=== PATIENT | male | born 1935 | race Caucasian/White ===

== ENCOUNTER → 2018-01-08 | Day surgery (SDC) | payer OTHER ==
[2018-01-06 11:53] LABS: BASOPHILS % 0.7 % (0.0-1.0); EOSINOPHILS # (AUTO) 0.1 (0.0-0.4); EOSINOPHILS % 1.5 % (0.0-6.0); HEMATOCRIT 40.6 % (38.2-49.6); HEMOGLOBIN 13.7 g/dL (14.0-18.0); LYMPHOCYTES # (AUTO) 1.6 (1.0-3.2); LYMPHOCYTES % 25.7 % (18.0-39.1); MEAN CORPUSCULAR HEMOGLOBIN 32.2 pg (28-32); MEAN CORPUSCULAR HGB CONC 33.7 g/dL (31-35); MEAN CORPUSCULAR VOLUME 95.3 fL (81-99); MONOCYTES # (AUTO) 0.7 (0.2-0.8); MONOCYTES % 11.3 % (4.4-11.3); NEUTROPHILS # (AUTO) 3.7 (2.1-6.9); NEUTROPHILS % 60.6 % (38.7-80.0); PLATELET COUNT 137 x10e3/uL (140-360); RED BLOOD COUNT 4.26 x10e6/uL (4.3-5.7); RED CELL DISTRIBUTION WIDTH 13.1 % (11.7-14.4)
--- NOTE | 2018-01-06 12:36 | Diagnostic Imaging Report ---
PROCEDURE: Frontal and lateral views of the chest. COMPARISON: Chest radiograph 02/11/16. INDICATIONS: PRE-OP FINDINGS: Lines/tubes: None. Lungs: The lungs are well inflated. There is no evidence of pneumonia or pulmonary edema. Mild patchy left basilar opacity, likely atelectasis. Pleura: There is no pleural effusion or pneumothorax. Heart and mediastinum: The cardiomediastinal silhouette is unchanged. Tortuous thoracic aorta. Bones: No acute bony abnormality. IMPRESSION: No acute cardiopulmonary disease. Dictated by: SALVADOR RIVERA M.D. on 01/06/2018 at 12:42 Electronically approved by: SALVADOR RIVERA M.D. on 01/06/2018 at 12:42
[~2018-01-08] MED LIST: ACETAMINOPHEN 1000 MG/100 ML IV ONE; ALOE VERA25 MG PO; ASPIR 8181 MG PO; CEFTRIAXONE SOD 1 GM VIAL ONE; DEXAMETHASONE SOD PHOS INJ 4 MG/ML VIAL ONE; EXFORGE; FISH OIL 1,0001 EAC2 PO; FLOMAX0.4 MG PO; GARLIC1 EAC1 PO; GENTAMICIN 80MG/NS 100 ML 100 ML IV ONE; IOPAMIDOL 300MG/ML 50ML INFUS..BTL IV ONE; LEVOTHYROXINE; LIDOCAINE HCL 2% LOCAL INJ 5 ML SDV VIAL INJ ONE; PROPOFOL IV EMULSION 10 MG/ML 20 ML VIAL ONE; SEVOFLURANE INHAL SOLN 250 ML PEN BTL ONE; VITAMIN D400 UNIT PO
--- NOTE | 2018-03-02 14:58 | Operative Report ---
DATE OF PROCEDURE: January 08, 2018 PREOPERATIVE DIAGNOSES 1. Obstructive BPH. 2. Gross hematuria. POSTOPERATIVE DIAGNOSES 1. Obstructive BPH. 2. Gross hematuria. 3. Urethral stricture disease. PROCEDURES PERFORMED 1. Cystourethroscopy with calibration and dilation of urethral stricture (separate procedure performed for the diagnosis of the stricture). 2. Cystourethroscopy with bilateral ureteral catheterization and retrograde ureteropyelography (separate procedure performed to evaluate the hematuria). 3. Interpretation of retrograde ureteropyelography. 4. Supervision of fluoroscopy. No radiologist present. 5. Cystourethroscopy with transurethral resection of the prostate utilizing the PlasmaButton electrode. ANESTHESIA: General. COMPLICATIONS: None. CLINICAL SUMMARY: Laci Ratliff is an 82-year-old man who underwent previous photoselective vaporization of the prostate in 2007. Following this, he underwent a transurethral resection of the prostate in 2008. The patient has recurrent symptomatology and was also noted to have gross hematuria. He is brought to the operating room to evaluate and manage. He is aware of the risks of bleeding, infection, injury to adjacent structures, need for additional procedures and elected to proceed. OPERATIVE PROCEDURE IN DETAIL: Informed consent was verified. Laci Ratliff was properly identified, taken to the operating room and placed on the cystoscopy table in supine position. Anesthesia was uneventfully begun. The patient was then carefully and gently repositioned in the dorsal lithotomy position with all pressure points well padded. His genitalia were prepared and draped in the usual sterile fashion. The 22.5-Peruvian cystourethroscope sheath with visual obturator in place was atraumatically inserted in the patient's urethra. It was guided down the unremarkable distal urethra to the bulbar region where there was a significant stricture. This stricture was short, but it was definitely tight. It calibrated approximately 12 Peruvian in size. We dilated across this stricture utilizing the visual obturator. Thus, we dilated to 22.5-Peruvian in size. We progressively later dilated the stricture to 30 Peruvian in size with Laurel sounds. We went to the patient's prostate bed, which was significant for regrowth of prostatic tissue that was obstructing. This was most prominent at the level of the apex, but it was present throughout. Panendoscopy of the urinary bladder revealed trabeculations but no tumors, no stones and no diverticula. Normally positioned and configured ureteral orifices were identified. An 8-Peruvian catheter was used to cannulate each ureter, and retrograde ureteral pyelograms were performed. Interpretation of retrograde ureteropyelography: Contrast was instilled in retrograde fashion bilaterally. There no tumors, no stones and no diverticula. Unobstructed drainage was observed bilaterally fluoroscopically. There was significant tortuosity of the left ureter in comparison to the right ureter. There was the InterStim lead that appeared to be in adequate position. Following dilation with sounds to 30 Peruvian, we atraumatically introduced the resectoscope sheath. We then utilized the PlasmaButton electrode to vaporize the prostate from the bladder neck to but never past the verumontanum and down to the surgical capsule. Pinpoint electrocautery was utilized to achieve hemostasis. This resulted in a wide open prostatic bed. A continuous irrigation catheter was then placed. It was placed in continuous irrigation with completely clear efflux. The patient was uneventfully reversed from anesthesia and taken to the recovery room in stable condition. There were no complications to the procedure. The patient tolerated the procedure well. Estimated blood loss was minimal. Explicit postoperative instructions were given. We will follow the patient up in the office at which point in time we will perform uroflowmetry and bladder ultrasonography. Job#: [id number]
--- OUTSIDE RECORDS SUMMARY | 2018-03-04 00:47 | XMS REPORT ---
Author Author [facility] Address Unknown Phone Unavailable Care Team Providers Care Pens And Pencils Dipper Name Role Phone MIHIR HESS Unavailable Unavailable Problems This patient has no known problems. Allergies, Adverse Reactions, Alerts This patient has no known allergies or adverse reactions. Medications This patient has no known medications. Results Test Description Test Time Test Comments Text Results Atomic Results Result Comments CHEST 2 VIEWS 2018-01-06 12:42:00 [place] [address] Patient Name: DOROTEO ALBA MR #: [id number] : 1935 Age/Sex: 82/M Req #: [id number] Adm Physician: Ordered by: MIHIR HESS MD Report #: [id number] Location: OR Room/Bed: Procedure: [id number] DX/CHEST 2 VIEWS Exam Date: Exam Time: REPORT STATUS: Signed PROCEDURE: Frontal and lateral views of the chest. COMPARISON: Chest radiograph 02/11/16. INDICATIONS: PRE-OP FINDINGS: Lines/tubes: None. Lungs: The lungs are well inflated. There is no evidence of pneumonia or pulmonary edema. Mild patchy left basilar opacity, likely atelectasis. Pleura: There is no pleural effusion or pneumothorax. Heart and mediastinum: The cardiomediastinal silhouette is unchanged. Tortuous thoracic aorta. Bones: No acute bony abnormality. IMPRESSION: No acute cardiopulmonary disease. Dictated by: SALVADOR RIVERA M.D. on 01/06/2018 at 12 :42 Electronically approved by: SALVADOR RIVERA M.D. on 01/06/2018 at 12:42 Dictated By: SALVADOR RIVERA MD [id number] Transcribed By: RENATE on 01/06/18 1242 COPY TO: MIHIR HESS MD
--- OUTSIDE RECORDS SUMMARY | 2018-03-04 00:47 | XMS REPORT | Clinical Summary ---
Author Author [facility] Address Unknown Phone Unavailable Care Team Providers Care Commercial Appraiser Name Role Phone Shauna Casey MD PCP Allergies No Known Allergies Current Medications Prescription Sig. Disp. Refills Start End Date Status Date amlodipine-valsartan 11/27/19 Active (EXFORGE) 5-320 mg per 17 tablet levothyroxine (SYNTHROID, 10/16/19 Active LEVOXYL) 125 mcg tablet 17 aspirin (ECOTRIN) 81 MG Take 81 mg by mouth Active enteric coated tablet daily. nystatin (MYCOSTATIN) 500,000 units swish and 2000 g 0 02/24/20 100,000 unit/gram swallow QID x 10 days 17 18 powderIndications: Thrush, oral Active Problems No known active problems Encounters Date Type Specialty Care Team Description 02/25/2017 Office Visit Otolaryngology Pilar Dominguez MD Hyperkeratotic oral lesion (Primary Dx) 02/23/2017 Orders Only Otolaryngology Pilar Dominguez MD Thrush, oral (Primary Dx) 02/06/2017 Lab Lab Pilar Dominguez MD 02/06/2017 Procedure visit Otolaryngology Pilar Dominguez MD Oral ulcer (Primary Dx) 02/04/2017 Office Visit Otolaryngology Pilar Dominguez MD Oral leukoplakia (Primary Dx) after 01/07/2017 Family History Medical History Relation Name Comments No Known Problems Father Breast cancer Mother Migraines Mother Relation Name Status Comments Father Mother Social History Tobacco Use Types Packs/Day Years Used Date Former Smoker Alcohol Use Drinks/Week oz/Week Comments Yes 5 Glasses of 3.0 wine Sex Assigned at Date Recorded Not on file Last Filed Vital Signs Vital Sign Reading Time Taken Blood Pressure 155/85 02/25/2017 8:54 AM CDT Pulse 51 02/25/2017 8:54 AM CDT Temperature - - Respiratory Rate - - Oxygen Saturation - - Inhaled Oxygen - - Concentration Weight 93.4 kg (206 lb) 02/25/2017 8:54 AM CDT Height 188 cm (6' 2") 02/25/2017 8:54 AM CDT Body Mass Index 26.45 02/25/2017 8:54 AM CDT Plan of Treatment Health Maintenance Due Date Last Done Comments SHINGRIX VACCINE (#1) 1984 ZOSTER VACCINE 1994 PNEUMOCOCCAL 1999 POLYSACCHARIDE VACCINE AGE 65 AND OVER PNEUMOCOCCAL-13 1999 INFLUENZA VACCINE 12/30/2017 Procedures Procedure Name Priority Date/Time Associated Diagnosis Comments SURGICAL PATHOLOGY Routine 02/06/2017 Results for this REQUEST 9:00 AM CDT procedure are in the results section. after 01/07/2017 Results * Surgical pathology request (02/06/2017 9:00 AM) [facility] DEPARTMENT OF PATHOLOGY AND GENOMIC MEDICINE Surgical pathology report See link below for PDF Lab [facility] DEPARTMENT OF Report PATHOLOGY AND GENOMIC MEDICINE Performing Organization Address City/State/Zipcode Phone Number [facility] DEPARTMENT [address] [place] [address] PATHOLOGY AND GENOMIC MEDICINE after 01/07/2017 Insurance Payer Benefit Subscriber ID Type Phone Address Plan / Group TEXAN[employer] TEXAN[employer]US xxxxxxxxx [facility]
== END | disposition home or self-care (01) ==
LOC: OR 10:41
PROVIDERS: ATTEND Urology
DX: N40.1 Benign prostatic hyperplasia with lower urinary tract symptoms (principal); N13.8 Other obstructive and reflux uropathy; R39.14 Feeling of incomplete bladder emptying; N35.9 Urethral stricture, unspecified; N32.81 Overactive bladder; N39.41 Urge incontinence; N39.0 Urinary tract infection, site not specified; R35.1 Nocturia; N32.89 Other specified disorders of bladder; I10 Essential (primary) hypertension; R60.9 Edema, unspecified; R00.1 Bradycardia, unspecified; Z01.810 Encounter for preprocedural cardiovascular examination; Z01.812 Encounter for preprocedural laboratory examination; Z01.818 Encounter for other preprocedural examination; Z79.82 Long term (current) use of aspirin; Z87.442 Personal history of urinary calculi; Z87.891 Personal history of nicotine dependence; Z84.1 Family history of disorders of kidney and ureter
CPT/HCPCS: 36415; 52005; 52630; 71046; 74420; 85025; 86850; 86900; 93005; C1758; J0696; J1100; J1580; J2001; Q9967

== ENCOUNTER → 2018-10-06 | Day surgery (SDC) | payer MEDICARE ==
[2018-10-04 10:09] LABS: BASOPHILS # (AUTO) 0.1 (0.0-0.1); BASOPHILS % 0.9 % (0.0-1.0); EOSINOPHILS # (AUTO) 0.1 (0.0-0.4); EOSINOPHILS % 2.1 % (0.0-6.0); HEMATOCRIT 40.7 % (38.2-49.6); HEMOGLOBIN 13.7 g/dL (14.0-18.0); LYMPHOCYTES # (AUTO) 1.6 (1.0-3.2); LYMPHOCYTES % 23.9 % (18.0-39.1); MEAN CORPUSCULAR HEMOGLOBIN 31.3 pg (28-32); MEAN CORPUSCULAR HGB CONC 33.7 g/dL (31-35); MEAN CORPUSCULAR VOLUME 92.9 fL (81-99); MONOCYTES # (AUTO) 0.9 (0.2-0.8); MONOCYTES % 13.3 % (4.4-11.3); NEUTROPHILS % 59.5 % (38.7-80.0); PLATELET COUNT 169 x10e3/uL (140-360); RED BLOOD COUNT 4.38 x10e6/uL (4.3-5.7); RED CELL DISTRIBUTION WIDTH 13.2 % (11.7-14.4)
--- NOTE | 2018-10-04 10:38 | Diagnostic Imaging Report ---
EXAMINATION: PA and lateral views of the chest. COMPARISON: 01/16/2018 CLINICAL HISTORY: Preoperative study for urological procedure DISCUSSION: Lungs are well-inflated. Symmetric nodular opacities project over the lung bases compatible with nipple shadows. No airspace consolidation, pleural effusion, or pneumothorax. Stable cardiomediastinal contour with tortuosity and atherosclerotic calcification of the thoracic aorta. Normal heart size without overt pulmonary edema. No acute osseous abnormality. IMPRESSION: No acute cardiopulmonary abnormalities. Signed by: Dr. Ignacio Krishnan M.D. on 10/04/2018 10:35 AM
[~2018-10-06] MED LIST changes: -ACETAMINOPHEN 1000 MG/100 ML IV ONE; +BUPIVACAINE 0.5%/EPI 30 ML SDV INJ ONE; -CEFTRIAXONE SOD 1 GM VIAL ONE; +CLINDAMYCIN 600MG / 50ML 50 ML IV ONE; -GENTAMICIN 80MG/NS 100 ML 100 ML IV ONE; -IOPAMIDOL 300MG/ML 50ML INFUS..BTL IV ONE; +LIDOCAINE 2%/ EPINEPHRINE 20ML MDV ONE; +MULTIVITAMINS1 EAC7 PO; +ONDANSETRON HCL INJ 2MG/ML 2ML 2 MG/ML VIAL ONE; +PIPER-TAZ 3.375 GM 50 ML ONE; +ROCURONIUM BROMIDE 10 MG/ML 5ML VIAL ONE; +SUCCINYLCHOLINE 200 MG/10 ML SYR ONE
--- OUTSIDE RECORDS SUMMARY | 2018-10-06 08:05 | XMS REPORT | Clinical Summary ---
Author Author [facility] Address Unknown Phone Unavailable Care Team Providers Care Treasury Associate Name Role Phone Shauna Casey MD PCP Allergies No Known Allergies Medications End Date Status Medication Sig Dispensed Refills Start Date Active amlodipine-valsartan 0 (EXFORGE) 5-320 mg per 7 tablet Active levothyroxine (SYNTHROID, 0 LEVOXYL) 125 mcg tablet 7 Active aspirin (ECOTRIN) 81 MG Take 81 mg by 0 enteric coated tablet mouth daily. Active tamsulosin (FLOMAX) 0.4 Take 0.4 mg 0 mg capsule by mouth daily. 02/23/2018 nystatin (MYCOSTATIN) 500,000 units 2000 g 0 100,000 unit/gram swish and 7 powderIndications: swallow QID x Thrush, oral 10 days 06/26/2018 mouthwash compounding 15 mL by 480 mL 1 base 227 (MOUTHWASH-OM) mucous 9 mouthwash membrane route 3 (three) times a day for 10 days. . Active Problems No known active problems Encounters Care Team Description Date Type Specialty Pilar Dominguez MD Oral leukoplakia (Primary Dx); Dry mouth 06/16/2018 Office Visit Otolaryngology after 10/05/2017 Family History Medical History Relation Name Comments No Known Problems Father Breast cancer Mother Migraines Mother Relation Name Status Comments Father Mother Social History Date Tobacco Use Types Packs/Day Years Used Former Smoker Smokeless Tobacco: Never Used Alcohol Use Drinks/Week oz/Week Comments Yes 5 Glasses of 3.0 wine Sex Assigned at Date Recorded Not on file Industry Job Start Date Occupation Not on file Not on file Not on file Travel End Travel History Travel Start No recent travel history available. Last Filed Vital Signs Time Taken Vital Sign Reading 06/16/2018 10:56 AM [employer] Blood Pressure 128/80 06/16/2018 10:56 AM [employer] Pulse 59 - Temperature - - Respiratory Rate - - Oxygen Saturation - - Inhaled Oxygen - Concentration 06/16/2018 10:56 AM [employer] Weight 94.3 kg (208 lb) 06/16/2018 10:56 AM [employer] Height 185.4 cm (6' 1") 06/16/2018 10:56 AM [employer] Body Mass Index 27.44 Plan of Treatment Health Maintenance Due Date Last Done Comments SHINGLES VACCINES (#1) 1984 65+ PNEUMOCOCCAL VACCINE 1999 (1 of 2 - PCV13) PNEUMOCOCCAL 1999 POLYSACCHARIDE VACCINE AGE 65 AND OVER INFLUENZA VACCINE 12/30/2018 Results Not on fileafter 10/05/2017 Insurance Payer Benefit Subscriber ID Type Phone Address Plan / Group [employer] TEX[employer] xxxxxxxxx HMO [facility] Advance Directives Patient has advance care planning documents on file. For more information, eric oswald contact: Madi Coker [address] [facility] [place] [address]
[2018-10-06 13:29] VITALS: BP 141/67
--- NOTE | 2018-10-13 07:17 | Operative Report ---
DATE OF PROCEDURE: 10/06/2018 SURGEON: Billy Telles MD PREOPERATIVE DIAGNOSIS: Refractory urge incontinence. POSTOPERATIVE DIAGNOSIS: Refractory urge incontinence. OPERATION PERFORMED: 1. Incision and implantation of tined quadripolar lead electrodes into the right foramen S3. 2. Explantation of tined quadripolar lead electrodes from the left foramen S3. 3. Replacement of sacral nerve neurostimulator on the left hand side. 4. Fluoroscopic guidance for needle placement. 5. Electronic analysis and complex programming. 6. Supervision of fluoroscopy, no radiologist present. ANESTHESIA: General. COMPLICATIONS: None. CLINICAL SUMMARY: Laci Ratliff is an 83-year-old man, whose InterStim is now malfunctioning. He is brought for the above procedure. He is aware of the risks of bleeding, infection, injury to adjacent structures, need for additional procedures and elected to proceed. OPERATIVE PROCEDURE IN DETAIL: Informed consent was verified. Laci Ratliff was properly identified, taken to the operating room, where anesthesia was uneventfully begun. The patient was then repositioned in the prone position with all pressure points carefully well padded. His back and buttocks were prepared and draped in usual sterile fashion. A needle was introduced into the right foramen S3. Depth of needle was confirmed and adjusted fluoroscopically and we observed for lifting of the perineum or "bellowing" and observation of plantar flexion of the great toe utilizing the test stimulator box. The needle stylet was then removed and a directional guidewire was then placed and confirmed fluoroscopically. The foramen needle was then removed and an incision was made peripheral to the directional guidewire. The dilator and introducer sheath were then placed over the directional guidewire and directed into the foramen until the opaque marker of the dilator was seen midway through the sacrum. The dilator obturator was then unlocked and removed. The lead was then placed through the introducer sheath to the first white line. Position was checked fluoroscopically. The lead was then further advanced until the electrodes were visible anterior to the sacrum. Each electrode was then tested for the appropriate responses as noted above. After satisfactory positioning was confirmed, under continuous fluoroscopy, the introducer sheath was retracted, thus deploying the lead tines into the parasacral tissue. An incision was then made over the left lead. The left lead was isolated. Steady traction was placed until the lead was dislodged and it was explanted. A third incision was then made overlying the left neurostimulator. The incision was made until the neurostimulator was explanted. The pocket was modified. Copious irrigation was performed. Once the generator and the old lead were explanted, the new lead was then tunneled utilizing the tunneling tool into the pocket site. The lead was then cleansed of all bodily fluids utilizing sterile water and thoroughly dried. The lead was then placed into the pulse generator head with the metal bands were aligned and the blue tip clearly visible in the distal portion of the pulse generator header. The single set screw was tightened with a hex wrench. Copious irrigation was performed of all incisions. Verification of hemostasis was performed. The pulse generator was then placed in the subcutaneous pocket and the programming head was brought over the implanted neurostimulator. The all impedance parameters were within acceptable limits. All three incisions were then approximated in 2 layers utilizing absorbable suture. Mastisol, Steri-Strips, and Bioclusive dressings were applied. The patient was then uneventfully reversed from anesthesia and taken to recovery room in stable condition. Following recovery, the patient was then programmed to the lead of optimum sensation and given explicit instructions in utilizing the patient computer programmer prior to discharge. Sponge, needle, and instrument counts were of course correct x2 at the end of the case. Estimated blood loss was minimal. Expressive postoperative instructions were given. We will follow the patient up in the office, at which point in time, we will evaluate the patient's impedance and possibly reprogram him as needed. Billy Telles MD [place]/MODL /[id number] cc: Shauna Casey MD
== END | disposition home or self-care (01) ==
LOC: OR 08:02
PROVIDERS: ATTEND Urology
DX: N39.41 Urge incontinence (principal); N40.1 Benign prostatic hyperplasia with lower urinary tract symptoms; R39.14 Feeling of incomplete bladder emptying; R35.1 Nocturia; N35.919 Unspecified urethral stricture, male, unspecified site; N32.81 Overactive bladder; N39.0 Urinary tract infection, site not specified; R60.0 Localized edema; R00.1 Bradycardia, unspecified; I10 Essential (primary) hypertension; H40.9 Unspecified glaucoma; Y83.1 Surgical operation with implant of artificial internal device as the cause of abnormal reaction of the patient, or of later complication, without mention of misadventure at the time of the procedure; Z01.810 Encounter for preprocedural cardiovascular examination; Z01.812 Encounter for preprocedural laboratory examination; Z01.818 Encounter for other preprocedural examination; Z79.82 Long term (current) use of aspirin; Z87.891 Personal history of nicotine dependence; Z87.442 Personal history of urinary calculi
CPT/HCPCS: 36415; 64581; 64590; 71046; 76000; 85025; 88300; 93005; 95972; C1778; C1894; J1100; J2001 ×2; J2405; J2543; J2704; L8679